=== PATIENT | female | born 1995 | race Two or more races ===

== ENCOUNTER 2021-02-12 22:34 | Emergency (ER) | payer MEDICAID ==
[~2021-02-12] VITALS: Ht 167.6 cm; Wt 90.0 kg
[2021-02-12 22:46] VITALS: BP 108/57
[2021-02-12] MEDS ORDERED: KETOROLAC 60MG/2ML VIAL IM ONE (23:00)
[2021-02-12] MEDS ORDERED: METOCLOPRAMIDE HCL 10MG/2ML VIAL IV ONE (23:00)
[2021-02-12] MEDS ORDERED: KETOROLAC 30MG/ML VIAL IV ONE (23:00)
[2021-02-12] MEDS ORDERED: SODIUM CHLORIDE 0.9% 1,000 ML IV ONE (23:00)
[2021-02-13] MEDS ORDERED: IBUP-2030 MT (00:17)
== END 2021-02-13 00:40 | disposition home or self-care (01) ==
LOC: ER 22:34
DX: U07.1 COVID-19 (principal)
CPT/HCPCS: 71045; 99284; C9803; J1885; J2765; J7030; U0003; U0005

== ENCOUNTER 2022-09-03 16:17 | Emergency (ER) | payer MEDICAID, OTHER ==
[~2022-09-03] VITALS: Ht 170.2 cm; Wt 91.0 kg
[~2022-09-03 16:17] MED LIST: IBUP-2030 MT
[2022-09-03 16:22] VITALS: BP 135/84; PULSE 100; RESP 18; TEMP 98.2; O2SAT 100
== END 2022-09-03 19:32 | disposition left against medical advice (07) ==
LOC: ER 18:15
DX: Z53.21 Procedure and treatment not carried out due to patient leaving prior to being seen by health care provider (principal)
CPT/HCPCS: 99281